=== PATIENT | female | born 1990 | race Hispanic/Latino ===

== ENCOUNTER → 2020-03-20 | Outpatient (CLI) | payer BC ==
[~2020-03-20] MED LIST: MAGNESIUM PO; MULTI-VITAMIN1 EACH PO; PRILOSEC OTC20 MG PO; VITAMIN D PO; ZINC PO
--- NOTE | 2020-03-20 12:27 | Diagnostic Imaging Report ---
EXAM: Right upper quadrant abdominal ultrasound INDICATION: Right upper quadrant pain COMPARISON: None. TECHNIQUE: Transverse and longitudinal images of the right upper quadrant abdomen were obtained FINDINGS: Liver: Size: 13.7 cm in the right midclavicular line, normal Appearance: Normal echogenicity, smooth contour Mass: No focal masses Gallbladder: No gallbladder distension, pericholecystic fluid, wall thickening, stone, or reported sonographic Bernstein's sign. 3 mm polyp in the gallbladder wall. Gallbladder wall measures 2 mm. Bile Ducts: Intrahepatic Ducts: No dilatation Extrahepatic Ducts: Common bile duct measures 2 mm Pancreas: Visualized portions of the pancreatic head, neck and proximal body are normal. Kidney: The right kidney measures 10.2 cm without evidence of hydronephrosis or stone. Vessels: Aorta: Visualized portions are normal Inferior Vena Cava: Visualized portions are normal Main Portal Vein: 0.8 cm, normal size with hepatopetal flow. Free Fluid: No ascites or pleural effusion IMPRESSION: No sonographic evidence of cholelithiasis or cholecystitis. 3 mm gallbladder polyp. Signed by: Jean Pierre Esposito MD on 03/20/2020 12:23 PM
== END ==
LOC: US 10:51
PROVIDERS: ATTEND Internal Medicine Gastroenterology
DX: R10.11 Right upper quadrant pain (principal)
CPT/HCPCS: 76705

== ENCOUNTER → 2020-03-27 | Day surgery (SDC) | payer BC, OTHER ==
[2020-03-27 08:30] VITALS: BP 104/65
--- NOTE | 2020-03-27 09:05 | Operative Report ---
DATE OF PROCEDURE: 03/27/2020 SURGEON: Drake Streeter MD PROCEDURE: EGD with polypectomy and biopsies. INDICATIONS FOR EGD: Upper abdominal pain. MEDICATIONS: The patient was done under MAC. Please see anesthesiologist's note. PROCEDURE IN DETAIL: With the patient in left lateral decubitus position, a flexible fiberoptic Olympus gastroscope was introduced into the esophagus under direct visualization without any difficulty. There was some patchy erythema noted in distal esophagus. The scope was then advanced with ease into the stomach, mucosa overlying the antrum and the body revealed some patchy erythema and low-grade to moderate edema, and biopsies were obtained and sent to stain for H. pylori. Hyperplastic-appearing polyps x2, largest was approximately 4 mm in size were noted in the body of the stomach and those were partially excised with cold biopsy forceps. The pylorus was of normal contour and shape, was intubated with ease and the scope was advanced all the way to the second portion of the duodenum. Biopsies were obtained from the proximal second portion and a duodenal bulb to rule out sprue. The scope was then withdrawn back into the stomach and retroflexed, mucosa overlying the fundus and cardia appeared to be within normal limits. The scope was then straightened out, it was subsequently withdrawn. Patient tolerated the procedure well. IMPRESSION: 1. Distal esophagitis, mild. 2. Gastritis, biopsied; biopsies sent to stain for H. pylori. 3. Gastric polyps, body, partially excised with cold biopsy forceps. 4. Rule out sprue. PLAN: Follow up histology. Continue omeprazole 40 mg one p.o. q.a.m. a.c. Add Carafate 1 g p.o. a.c. t.i.d. and at bedtime. Drake Streeter MD [facility] [place] /[id number] cc: Juwan De La Paz DO
== END | disposition home or self-care (01) ==
LOC: OR 06:03
PROVIDERS: ATTEND Internal Medicine Gastroenterology
DX: K29.70 Gastritis, unspecified, without bleeding (principal); K31.7 Polyp of stomach and duodenum; K20.9 Esophagitis, unspecified; K28.9 Gastrojejunal ulcer, unspecified as acute or chronic, without hemorrhage or perforation; K21.9 Gastro-esophageal reflux disease without esophagitis; Z01.812 Encounter for preprocedural laboratory examination; Z11.59 Encounter for screening for other viral diseases
CPT/HCPCS: 43239; 81025; 87635